=== PATIENT | female | born 1970 | race Caucasian/White ===

== ENCOUNTER 2016-11-17 07:32 | Outpatient (CLI) | payer OTHER ==
[2016-11-17 07:46] VITALS: BP 120/68
[2016-11-17] MEDS ORDERED: IRON325 M1 PO (12:53)
[2016-11-17] MEDS ORDERED: PRENATAL TABLE1 EACH PO (12:53)
== END 2016-11-17 09:11 | disposition home or self-care (01) ==
LOC: LDRP-OP 07:32 → 2WEST 07:33 → LDRP-OP 02-28 16:24
DX: O26.893 Other specified pregnancy related conditions, third trimester (principal); R10.10 Upper abdominal pain, unspecified; O99.013 Anemia complicating pregnancy, third trimester; D64.9 Anemia, unspecified; Z3A.29 29 weeks gestation of pregnancy
CPT/HCPCS: 59025; G0378

== ENCOUNTER 2016-11-17 09:33 | Outpatient (CLI) | payer OTHER ==
[~2016-11-17] VITALS: Ht 165.1 cm; Wt 62.2 kg
[2016-11-17 10:28] LABS: EOSINOPHIL (%) 0.5 % (0-5); HEMATOCRIT 33.6 % (36.0-46.0); IMMATURE GRANULOCYTE (%) 0.6 % (0.0-0.7); IMMATURE GRANULOCYTE COUNT 0.1 K/uL; INSTRUMENT ABS NEUTROPHIL CT 6.1 K/uL; MCH 30.6 PG (29.0-34.0); MCHC 32.7 G/DL (30.0-36.0); MCV 93.6 FL (83-99); MEAN PLAT.VOLUME 9.7 uM^3 (9.5-12.4); MONOCYTE COUNT 0.6 K/uL (0-0.8); NEUTROPHIL (%) 77.7 % (45-76); NEUTROPHIL COUNT 6.1 K/uL (1.8-6.4); PLATELET COUNT 248 K/uL (156-360); RBC DIS.WIDTH-CV 14.7 % (11.8-14.6); RED BLOOD COUNT 3.59 M/uL (3.80-5.20); WHITE BLOOD COUNT 7.9 K/uL (4.1-10.2)
[2016-11-17 10:36] LABS: ADD MIUA? NO; BILIRUBIN NEGATIVE; BLOOD NEGATIVE; COLOR COLORLESS ((YELLOW)); GLUCOSE (STRIP) NEGATIVE; KETONES NEGATIVE; LEUKOCYTES NEGATIVE; NITRITE NEGATIVE; PROTEIN (STRIP) NEGATIVE; SPECIFIC GRAVITY 1.004 (1.000-1.030); UCUL ADDED? NO; UROBILINOGEN 0.2 MG/DL (0.2-1.0)
[2016-11-17 10:45] LABS: CHLORIDE 107 mEq/L (99-109); POTASSIUM 4.1 mEq/L (3.7-5.4); SODIUM 138 mEq/L (136-147)
[2016-11-17 10:48] LABS: GLUCOSE 87 mg/dL (70-99)
[2016-11-17 10:49] LABS: ANION GAP 7 MEQ/L (2-14)
[2016-11-17 10:50] LABS: TOTAL BILIRUBIN 0.4 mg/dL (0.0-1.0)
[2016-11-17 10:51] LABS: ALKALINE PHOSPHATASE 73 IU/L (3-129); GFR ESTIMATE (CALCULATED) > 59 mL/min/
[2016-11-17 10:52] LABS: UREA NITROGEN (BUN) 9 mg/dL (9-23)
[2016-11-17 10:55] LABS: LIPASE 88 U/L (1.0-51.0)
[2016-11-17] MEDS ORDERED: PRENATAL TABLE1 EACH PO (12:53)
[2016-11-17] MEDS ORDERED: IRON325 M1 PO (12:53)
[2016-11-17 14:20] VITALS: BP 112/65
== END 2016-11-17 18:13 | disposition home or self-care (01) ==
LOC: LDRP-OP 09:33 → EME 09:33 → EDSTATUS 14:30 → 2WEST 14:31
PROVIDERS: Emergency Medicine
DX: O26.893 Other specified pregnancy related conditions, third trimester (principal); Z3A.29 29 weeks gestation of pregnancy; R10.13 Epigastric pain; R11.0 Nausea; Z87.891 Personal history of nicotine dependence
CPT/HCPCS: 59025; 76705; 80053; 81003; 83690; 85025; 99281; 99285; G0378; J2270; J2405; J7030; J7120; S0028

== ENCOUNTER 2017-01-22 05:30 | Inpatient (IN) | payer OTHER ==
[2017-01-22] VITALS (9 sets, daily range): BP systolic 111–139; BP diastolic 56–77
[~2017-01-22] VITALS: Ht 165.1 cm; Wt 65.0 kg
[~2017-01-22 05:30] MED LIST: IRON325 M1 PO; PEPCID40 MG PO; PRENATAL TABLE1 EACH PO
[2017-01-22] MEDS ORDERED: IRON325 M1 PO (05:52)
[2017-01-22] MEDS ORDERED: IBUPROFEN800 MG PO (09:08)
[2017-01-22] MEDS ORDERED: ENDOCET 5-3251 EACH PO (09:08)
[2017-01-23 03:00] VITALS: BP 102/56
[2017-01-23 06:33] LABS: EOSINOPHIL (%) 0.3 % (0-5); HEMATOCRIT 28.8 % (36.0-46.0); IMMATURE GRANULOCYTE (%) 0.6 % (0.0-0.7); IMMATURE GRANULOCYTE COUNT 0.1 K/uL; INSTRUMENT ABS NEUTROPHIL CT 9.7 K/uL; LYMPHOCYTE COUNT 1.1 K/uL (1.0-2.8); MCH 31.5 PG (29.0-34.0); MCHC 34.4 G/DL (30.0-36.0); MCV 91.7 FL (83-99); MEAN PLAT.VOLUME 10.8 uM^3 (9.5-12.4); MONOCYTE (%) 8.6 % (3-12); NEUTROPHIL (%) 81.5 % (45-76); NEUTROPHIL COUNT 9.7 K/uL (1.8-6.4); PLATELET COUNT 181 K/uL (156-360); RBC DIS.WIDTH-CV 14.4 % (11.8-14.6); RBC DIS.WIDTH-SD 48.3 % (39-53); RED BLOOD COUNT 3.14 M/uL (3.80-5.20); WHITE BLOOD COUNT 11.9 K/uL (4.1-10.2)
[2017-01-23 07:34] VITALS: BP 118/62
[2017-01-23 11:52] VITALS: BP 122/62
[2017-01-23 15:07] VITALS: BP 111/66
[2017-01-23 19:18] VITALS: BP 98/55
[2017-01-23 23:06] VITALS: BP 104/51
[2017-01-24 02:16] VITALS: BP 103/51
[2017-01-24 07:57] VITALS: BP 124/64
[2017-01-24 16:00] VITALS: BP 133/63
[2017-01-24 22:29] LABS: EOSINOPHIL (%) 0.1 % (0-5); HEMATOCRIT 27.1 % (36.0-46.0); IMMATURE GRANULOCYTE COUNT 0.1 K/uL; INSTRUMENT ABS NEUTROPHIL CT 12.3 K/uL; LYMPHOCYTE COUNT 1.1 K/uL (1.0-2.8); MCHC 35.1 G/DL (30.0-36.0); MCV 91.2 FL (83-99); MONOCYTE (%) 6.7 % (3-12); NEUTROPHIL (%) 84.3 % (45-76); NEUTROPHIL COUNT 12.3 K/uL (1.8-6.4); PLATELET COUNT 205 K/uL (156-360); RBC DIS.WIDTH-CV 14.7 % (11.8-14.6); RBC DIS.WIDTH-SD 49.7 % (39-53); RED BLOOD COUNT 2.97 M/uL (3.80-5.20); WHITE BLOOD COUNT 14.6 K/uL (4.1-10.2)
[2017-01-24 22:35] VITALS: BP 119/56
[2017-01-25 01:21] LABS: ADD MIUA? YES; BILIRUBIN NEGATIVE; BLOOD SMALL; COLOR YELLOW ((YELLOW)); GLUCOSE (STRIP) NEGATIVE; KETONES 20; LEUKOCYTES TRACE; NITRITE NEGATIVE; PROTEIN (STRIP) NEGATIVE; UROBILINOGEN 0.2 MG/DL (0.2-1.0)
[2017-01-25 01:37] LABS: BACTERIA RARE /HPF; EPITHELIAL CELLS 1+ /HPF; HYALINE CASTS 0-5 /LPF; MUCUS 1+ /LPF; RED BLOOD CELLS 0-5 /HPF (0-5); WHITE BLOOD CELLS 0-5 /HPF (0-5)
[2017-01-25] MEDS ORDERED: DOCUSATE SODIU100 MG PO (07:45)
[2017-01-25 07:53] VITALS: BP 114/57
== END 2017-01-25 15:15 | disposition home or self-care (01) | DRG 766 ==
LOC: 2WEST 05:30 → 2SOUTH 10:56 → 2WEST 01-25 15:15
PROVIDERS: Midwife; Obstetrics & Gynecology
DX: O34.211 Maternal care for low transverse scar from previous cesarean delivery (principal); O34.83 Maternal care for other abnormalities of pelvic organs, third trimester; D27.0 Benign neoplasm of right ovary; O62.2 Other uterine inertia; O77.0 Labor and delivery complicated by meconium in amniotic fluid; D50.9 Iron deficiency anemia, unspecified; O99.02 Anemia complicating childbirth; O99.344 Other mental disorders complicating childbirth; F32.9 Major depressive disorder, single episode, unspecified; F43.10 Post-traumatic stress disorder, unspecified; G43.909 Migraine, unspecified, not intractable, without status migrainosus; Z37.0 Single live birth; Z3A.39 39 weeks gestation of pregnancy; Z87.891 Personal history of nicotine dependence
CPT/HCPCS: 36415; 81003; 85025; 86850; 86900; 86901; 88307; J0690; J1100; J2210; J2274; J2405; J2765; J7120